=== PATIENT | female | born 1985 | race Caucasian/White ===

== ENCOUNTER → 2021-03-20 16:42 | Observation (INO) | END | disposition home or self-care (01) | LOC: 1NENULAB | PROVIDERS: ADMIT Registered Nurse; ATTEND Registered Nurse ==

== ENCOUNTER 2021-03-30 09:53 | Inpatient (IN) ==
[2021-03-30] MEDS ORDERED: Ondansetron 4 MG/2 ML VIAL IVP PRN (10:05)
[2021-03-30] MEDS ORDERED: Naloxone 0.4 MG/ML INJ IVP PRN (10:05)
[2021-03-30] MEDS ORDERED: Metoclopramide 10 MG/2 ML VIAL IVP PRN (10:05)
[2021-03-30] MEDS ORDERED: Famotidine 20 MG/2 ML VIAL IVP PRN (10:05)
[2021-03-30] MEDS ORDERED: Lidocaine 1% 20 ML MDV INFILT PRN (10:05)
[2021-03-30] MEDS ORDERED: *HR* Nalbuphine 10 MG/ML AMPUL IV PRN (10:05)
[2021-03-30] MEDS ORDERED: Ringers Solution, Lactated 1,000 ML IVC SCH (10:15)
[2021-03-30] MEDS ORDERED: Oxytocin 20 units/ LR 1000 mL 20 UNIT/1,000 ML BAG IVC ONE (11:33)
[2021-03-30] MEDS ORDERED: Oxytocin 20 units/ LR 1000 mL 20 UNIT/1,000 ML BAG IVC SCH ×2 (11:45→20:45)
[2021-03-30 11:52] LABS: Basophils # 0.1 K/mcL (0.0-0.2); Basophils % 0.5 %; Eosinophils # 0.2 K/mcL (0.0-0.6); Hematocrit 33.1 % (35.3-44.9); Hemoglobin 11.3 g/dL (11.5-15.4); Immature Granulocytes % 1.6 % (0-4); Lymphocytes # 1.9 K/mcL (0.6-4.6); Lymphocytes % 12.2 %; Mean Corpuscular HGB Conc 34.1 g/dL (31.6-35.5); Mean Corpuscular Hemoglobin 32.1 pg (28.0-33.3); Mean Platelet Volume 10.5 fL (9.4-12.4); Monocytes % 6.2 %; Neutrophils # 12.2 K/mcL (1.6-8.9); Platelet Count 285 K/mcL (140-400); Red Blood Count 3.52 M/mcL (3.82-4.97); Red Cell Distribution Width 12.7 % (11.5-14.5); Segmented Neutrophils % 78.5 %; White Blood Count 15.6 K/mcL (4.3-11.1)
[2021-03-30 12:00] LABS: Amphetamine Screen,Urine Negative ng/mL (Cutoff=1000); Barbiturate Screen,Urine Negative ng/mL (Cutoff=200); Benzodiazepines Screen,Urine Negative ng/mL (Cutoff=200); Cannabinoid Screen,Urine Negative ng/mL (Cutoff = 50); Cocaine Screen,Urine Negative ng/mL (Cutoff= 300); Opiate Screen,Urine Negative ng/mL (Cutoff=300); Phencyclidine Screen,Urine Negative ng/mL (Cutoff=25)
[2021-03-30] MEDS ORDERED: EPHEDrine 50 MG/ML VIAL IVP PRN (12:15)
[2021-03-30] MEDS ORDERED: Epidural Premix (fent/bupiv) 110 ML EP SCH (12:15)
[2021-03-30] MEDS ORDERED: Acetaminophen 325 MG TABLET PO PRN (20:45)
[2021-03-30] MEDS ORDERED: Measles/Mumps/Rubella Vacc 0.5 ML VIAL SQ PRN (20:45)
[2021-03-30] MEDS ORDERED: Rho Immune Globulin 1,500 UNIT SYRINGE IM PRN (20:45)
[2021-03-30] MEDS ORDERED: Ibuprofen 600 MG TABLET PO PRN (20:45)
[2021-03-31 05:05] LABS: Basophils # 0.1 K/mcL (0.0-0.2); Basophils % 0.3 %; Eosinophils # 0.1 K/mcL (0.0-0.6); Eosinophils % 0.8 %; Hematocrit 29.9 % (35.3-44.9); Immature Granulocytes % 0.9 % (0-4); Lymphocytes # 2.2 K/mcL (0.6-4.6); Lymphocytes % 11.6 %; Mean Corpuscular HGB Conc 33.4 g/dL (31.6-35.5); Mean Corpuscular Hemoglobin 32.1 pg (28.0-33.3); Mean Corpuscular Volume 95.8 fL (83.0-100.0); Mean Platelet Volume 10.5 fL (9.4-12.4); Monocytes # 1.2 K/mcL (0.0-1.3); Monocytes % 6.4 %; Neutrophils # 14.9 K/mcL (1.6-8.9); Platelet Count 250 K/mcL (140-400); Red Blood Count 3.12 M/mcL (3.82-4.97); Red Cell Distribution Width 12.8 % (11.5-14.5); White Blood Count 18.7 K/mcL (4.3-11.1)
[2021-03-31] MEDS ORDERED: Prenatal Vit/FA 1 EACH TABLET PO SCH (09:00)
[2021-03-31 16:05] VITALS: BP 103/68
== END 2021-03-31 21:10 | disposition home or self-care (01) | DRG 807 ==
LOC: 1NENULAB 09:53 → 1NENUOBS 21:47
PROVIDERS: ADMIT Advanced Practice Midwife; ATTEND Advanced Practice Midwife